=== PATIENT | male | born 1985 | race Caucasian/White ===

== ENCOUNTER 2016-12-30 05:48 | Emergency (ER) | payer SELFPAY ==
[~2016-12-30] VITALS: Ht 185.4 cm; Wt 81.8 kg
[~2016-12-30 05:48] MED LIST: CLEOCIN HC150 MG/CAP PO; CLINDAMYCIN HC300 MG PO; CLINDAMYCIN300 MG PO; DOXYCYCLINE 10100 MG PO; FLEXERIL10 MG PO; HYDROMORPHONE HC2 MG PO; IBUPROFEN800 MG PO; LORTAB 5/500 501 TAB PO; LORTAB 7.5/5001 TAB PO; MEDROL 4MG DOSPA4 MG PO; MEPEREDINE50 MG PO; MOTRIN 800800 MG/TAB PO; NAPROSYN500 MG PO; NO HOME MEDICATIONS; OXYCODONE HCL10 MG PO; OXYCODONE HCL20 MG PO; OXYCODONE HCL30 MG PO; OXYCONTIN30 MG PO; PERCOCET 325 MG1 TA2 PO; PERCOCET 325 MG1 TAB PO; PERCOCET 5/321 UDTAB PO; PERCOCET 500 MG1 TAB PO; PHENERGAN 25 TA25 MG PO; PHENERGAN W/CO120 ML PO; PREDNISONE20 MG PO; PROVENTIL0.09 MG/A1 IH; SKELAXIN400 MG PO; SUBOXONE 8 MG-21 FIL SL; VALIUM 5MG T5 MG/TAB PO; ZOFRAN4 M1 PO
[2016-12-30 05:50] VITALS: BP 137/83; PULSE 71; TEMP 98.3
[2016-12-30] MEDS ORDERED: MEDROL 4MG DOSPA4 MG PO (06:18)
[2016-12-30] MEDS ORDERED: FLEXERIL 1010 MG/TAB PO (06:18)
== END 2016-12-30 06:30 | disposition home or self-care (01) ==
LOC: COL.ER 05:48
DX: M54.42 Lumbago with sciatica, left side (principal)